=== PATIENT | male | born 1980 | race Caucasian/White ===

== ENCOUNTER 2017-08-15 14:02 | Inpatient (IN) | payer MEDICAID, OTHER ==
[~2017-08-15] VITALS: Ht 152.4 cm; Wt 61.0 kg
[2017-08-15] MEDS ORDERED: SODIUM CHLORIDE FLUSH 10ML SYR IVF ONE (14:30)
[2017-08-15] MEDS ORDERED: SODIUM CHLORIDE 0.9% 1,000ML IVBOLUS ONE (14:30)
[2017-08-15] MEDS ORDERED: MORPHINE SULFATE 4 MG/ML, 1ML IVPush PRN ×2 (14:30→20:30)
[2017-08-15] MEDS ORDERED: ONDANSETRON ODT 4 MG PO ONE (14:30)
[2017-08-15] MEDS ORDERED: ACETAMINOPHEN 325 MG TABLET PO ONE (14:30)
[2017-08-15] MEDS ORDERED: ONDANSETRON ODT 4 MG ONE (14:49)
[2017-08-15] MEDS ORDERED: ACETAMINOPHEN 325 MG TABLET ONE (14:50)
[2017-08-15] MEDS ORDERED: MORPHINE SULFATE 4 MG/ML, 1ML ONE (14:50)
[2017-08-15 14:56] LABS: BASOPHILS # (AUTO) 0.02 x10^3/uL (0-0.1); BASOPHILS % (AUTO) 0 % (0-1); EOSINOPHILS % (AUTO) 0 % (1-7); LYMPHOCYTES # (AUTO) 1.13 x10^3/uL (1-3.4); LYMPHOCYTES % (AUTO) 10 % (22-44); MD NO; MEAN CORPUSCULAR HEMOGLOBIN 30.1 pg (27.5-34.5); MEAN CORPUSCULAR HGB CONC 34.1 g/dL (33.2-36.2); MEAN CORPUSCULAR VOLUME 88.3 fL (81-97); MEAN PLATELET VOLUME 7.7 fL (7.4-10.4); MONOCYTES # (AUTO) 0.87 x10^3/uL (0.2-0.8); MONOCYTES % (AUTO) 8 % (2-9); NEUTROPHILS # (AUTO) 9.28 x10^3/uL (1.8-6.8); NEUTROPHILS % (AUTO) 82 % (42-75); PLATELET COUNT 401 x10^3/uL (130-400); RED BLOOD COUNT 5.48 x10^6/uL (4.38-5.82); RED CELL DISTRIBUTION WIDTH 12.3 % (9.4-14.8)
[2017-08-15 15:08] LABS: ALBUMIN 3.6 g/dL (3.4-5.0); ANION GAP 7 mmol/L (5-15); CALCIUM 8.8 mg/dL (8.5-10.1); CHLORIDE 101 mmol/L (98-107)
[2017-08-15 16:00] LABS: ACETONE, SERUM Small (20mg/dL) mg/dL (Negative)
[2017-08-15] MEDS ORDERED: AMPICILLIN/SULBACTAM 3 GM in SODIUM CHLORIDE 0.9% 100 ML IV ONE (17:30)
[2017-08-15] MEDS ORDERED: ONDANSETRON 2MG/ML, 2ML IVPush PRN ×2 (18:00→20:30)
[2017-08-15] MEDS: AMPICILLIN/SULBACTAM 3 GM in SODIUM CHLORIDE 0.9% 100 ML IV SCH (18:00)
[2017-08-15] MEDS ORDERED: BISACODYL 10 MG SUPP PR PRN (18:00)
[2017-08-15] MEDS ORDERED: POLYETHYLENE GLYCOL 17 GM PACKET PO PRN (18:00)
[2017-08-15] MEDS ORDERED: FENTANYL PF 250 MCG/5ML ONE (19:57)
[2017-08-15] MEDS ORDERED: MIDAZOLAM 1 MG/ML, 2ML ONE (19:57)
[2017-08-15] MEDS ORDERED: PROPOFOL 10 MG/ML, 20ML ONE (19:58)
[2017-08-15] MEDS ORDERED: ROCURONIUM 10MG/ML,5ML ONE (19:59)
[2017-08-15] MEDS ORDERED: SUCCINYLCHOLINE 20 MG/ML, 10ML ONE (20:00)
[2017-08-15] MEDS ORDERED: EPINEPHRINE 1 MG/ML, 1ML ONE (20:03)
[2017-08-15] MEDS ORDERED: LIDOCAINE/PF 1%, 30ML ONE (20:03)
[2017-08-15] MEDS ORDERED: ACETAMINOPHEN 325 MG TABLET PO PRN (20:30)
[2017-08-15] MEDS ORDERED: PROMETHAZINE 25 MG/ML, 1ML IV PRN (20:30)
[2017-08-15] MEDS ORDERED: LABETALOL 5MG/ML, 20ML IV PRN (20:30)
[2017-08-15] MEDS ORDERED: hydrALAzine 20 MG/ML, 1ML IV PRN (20:30)
[2017-08-15] MEDS ORDERED: PROMETHAZINE 12.5 MG SUPP PR PRN (20:30)
[2017-08-15] MEDS ORDERED: ONDANSETRON 0.8 MG/ML ORAL SOL PO PRN (20:30)
[2017-08-15] MEDS ORDERED: FENTANYL PF 100 MCG/2ML IV PRN (20:30)
[2017-08-15] MEDS ORDERED: PROMETHAZINE 25 MG SUPP PR PRN (20:30)
[2017-08-15] MEDS ORDERED: MEPERIDINE/PF 25MG/0.5ML IVPush PRN (20:30)
[2017-08-15] MEDS ORDERED: OXYcodone 5 MG/5 ML ORAL.SOL UDC PO PRN (20:30)
[2017-08-15] MEDS ORDERED: HYDROmorphone 1 MG/ML, 1ML IV PRN (20:30)
[2017-08-15] MEDS ORDERED: LIDOCAINE 1%-EPI 1:100K, 30ML IM ONE (20:48)
[2017-08-15 21:03] LABS: HEMOGLOBIN A1C 12.3 % (4.2-6.3)
[2017-08-15] MEDS ORDERED: MEPERIDINE/PF 25MG/0.5ML ONE (21:09)
[2017-08-15] MEDS ORDERED: OXYcodone 5 MG/5 ML ORAL.SOL UDC ONE (21:09)
[2017-08-15] MEDS ORDERED: ACETAMINOPHEN 650 MG/20.3 ML UDC ONE (21:12)
[2017-08-15] MEDS: NS + 20MEQ KCL 1,000 ML IV SCH (23:02)
[2017-08-16] MEDS ORDERED: MORPHINE SULFATE 4 MG/ML, 1ML ONE (00:05)
[2017-08-16] MEDS: morphine SULFATE 10 MG/ML, 1ML IVPush PRN (00:14)
[2017-08-16] MEDS: AMPICILLIN/SULBACTAM 3 GM in SODIUM CHLORIDE 0.9% 100 ML IV SCH ×5 (00:54→19:34)
[2017-08-16 02:00] VITALS: BP 111/71
[2017-08-16] MEDS: OXYcodone IR 5MG TABLET PO PRN ×3 (04:52→17:03)
[2017-08-16 05:38] LABS: BASOPHILS # (AUTO) 0.03 x10^3/uL (0-0.1); BASOPHILS % (AUTO) 0 % (0-1); EOSINOPHILS # (AUTO) 0.01 x10^3/uL (0-0.4); EOSINOPHILS % (AUTO) 0 % (1-7); LYMPHOCYTES # (AUTO) 1.64 x10^3/uL (1-3.4); LYMPHOCYTES % (AUTO) 12 % (22-44); MD NO; MEAN CORPUSCULAR HEMOGLOBIN 30.7 pg (27.5-34.5); MEAN CORPUSCULAR HGB CONC 34.2 g/dL (33.2-36.2); MEAN CORPUSCULAR VOLUME 89.8 fL (81-97); MEAN PLATELET VOLUME 7.5 fL (7.4-10.4); MONOCYTES # (AUTO) 1.24 x10^3/uL (0.2-0.8); MONOCYTES % (AUTO) 9 % (2-9); NEUTROPHILS # (AUTO) 10.88 x10^3/uL (1.8-6.8); NEUTROPHILS % (AUTO) 79 % (42-75); PLATELET COUNT 374 x10^3/uL (130-400); RED BLOOD COUNT 4.45 x10^6/uL (4.38-5.82); RED CELL DISTRIBUTION WIDTH 12.4 % (9.4-14.8)
[2017-08-16 05:46] LABS: ALANINE AMINOTRANSFERASE 18 U/L (12-78); ALBUMIN 2.6 g/dL (3.4-5.0); ANION GAP 9 mmol/L (5-15); CALCIUM 8.4 mg/dL (8.5-10.1); CHLORIDE 102 mmol/L (98-107)
[2017-08-16 05:48] LABS: ALKALINE PHOSPHATASE 79 U/L (45-117); BILIRUBIN,TOTAL 0.8 mg/dL (0.2-1.0); CREATININE 0.64 mg/dL (0.7-1.3); TOTAL PROTEIN 6.9 g/dL (6.4-8.2)
[2017-08-16 06:51] VITALS: BP 111/69
[2017-08-16] MEDS: NS + 20MEQ KCL 1,000 ML IV SCH ×3 (07:28→23:00)
[2017-08-16] MEDS: SENNA/DOCUSATE TABLET PO SCH (09:10)
[2017-08-16] MEDS: CHLORHEXIDINE 15 ML BOTTLE MM SCH ×2 (09:10→23:10)
[2017-08-16] MEDS: metFORMIN 500 MG TABLET PO SCH ×2 (09:10→17:03)
[2017-08-16 15:47] VITALS: BP 120/78
[2017-08-16] MEDS: ACETAMINOPHEN 325 MG TABLET PO PRN (15:50)
[2017-08-16] MEDS: INSULIN LISPRO 100 UNITS/ML, PEN SQ-INSULIN SCH ×2 (18:04→22:47)
[2017-08-16 19:02] VITALS: BP 114/73
[2017-08-16] MEDS: INSULIN GLARGINE 100 UNITS/ML, PEN SQ-INSULIN SCH (22:48)
[2017-08-17] MEDS: NS + 20MEQ KCL 1,000 ML IV SCH ×3 (00:22→16:17)
[2017-08-17] MEDS: OXYcodone IR 5MG TABLET PO PRN ×4 (01:33→17:38)
[2017-08-17] MEDS: AMPICILLIN/SULBACTAM 3 GM in SODIUM CHLORIDE 0.9% 100 ML IV SCH ×4 (01:33→19:35)
[2017-08-17 02:00] VITALS: BP 116/72
[2017-08-17] MEDS: ACETAMINOPHEN 325 MG TABLET PO PRN (03:27)
[2017-08-17 05:31] LABS: MEAN CORPUSCULAR HEMOGLOBIN 30.2 pg (27.5-34.5); MEAN CORPUSCULAR HGB CONC 33.9 g/dL (33.2-36.2); MEAN CORPUSCULAR VOLUME 89.2 fL (81-97); MEAN PLATELET VOLUME 7.2 fL (7.4-10.4); PLATELET COUNT 371 x10^3/uL (130-400); RED BLOOD COUNT 4.08 x10^6/uL (4.38-5.82); RED CELL DISTRIBUTION WIDTH 12.3 % (9.4-14.8)
[2017-08-17 05:44] LABS: ANION GAP 7 mmol/L (5-15); CALCIUM 7.8 mg/dL (8.5-10.1); CHLORIDE 102 mmol/L (98-107)
[2017-08-17 05:45] LABS: CREATININE 0.62 mg/dL (0.7-1.3)
[2017-08-17 06:10] LABS: BASOPHILS # (AUTO) 0.03 x10^3/uL (0-0.1); BASOPHILS % (AUTO) 0 % (0-1); EOSINOPHILS # (AUTO) 0.02 x10^3/uL (0-0.4); EOSINOPHILS % (AUTO) 0 % (1-7); LYMPHOCYTES # (AUTO) 2.38 x10^3/uL (1-3.4); LYMPHOCYTES % (AUTO) 21 % (22-44); MD SCAN; MONOCYTES # (AUTO) 1.48 x10^3/uL (0.2-0.8); MONOCYTES % (AUTO) 13 % (2-9); NEUTROPHILS # (AUTO) 7.67 x10^3/uL (1.8-6.8); NEUTROPHILS % (AUTO) 66 % (42-75)
[2017-08-17] MEDS: INSULIN LISPRO 100 UNITS/ML, PEN SQ-INSULIN SCH ×4 (07:15→21:51)
[2017-08-17 07:32] VITALS: BP 102/51
[2017-08-17] MEDS: metFORMIN 500 MG TABLET PO SCH ×2 (09:20→16:16)
[2017-08-17] MEDS: SENNA/DOCUSATE TABLET PO SCH (09:20)
[2017-08-17] MEDS: CHLORHEXIDINE 15 ML BOTTLE MM SCH ×2 (09:22→21:49)
[2017-08-17] MEDS ORDERED: VANCOMYCIN PER PHARMACY MC PRN (12:30)
[2017-08-17] MEDS ORDERED: PHARMACOKINETIC CONSULTATION MC ONE (13:00)
[2017-08-17] MEDS ORDERED: PHARMACOKINETIC MONITORING MC PRN (13:00)
[2017-08-17 13:16] VITALS: BP 110/73
[2017-08-17] MEDS: VANCOMYCIN 1,200 MG in SODIUM CHLORIDE 0.9% 250 ML IV SCH (13:52)
[2017-08-17] MEDS: ENOXAPARIN 40 MG/0.4 ML SQ SCH (16:16)
[2017-08-17 19:07] VITALS: BP 124/83
[2017-08-17] MEDS ORDERED: MORPHINE SULFATE 4 MG/ML, 1ML ONE (21:36)
[2017-08-17] MEDS: morphine SULFATE 10 MG/ML, 1ML IVPush PRN (21:48)
[2017-08-17] MEDS: INSULIN GLARGINE 100 UNITS/ML, PEN SQ-INSULIN SCH (21:52)
[2017-08-18] MEDS: AMPICILLIN/SULBACTAM 3 GM in SODIUM CHLORIDE 0.9% 100 ML IV SCH ×4 (01:08→21:00)
[2017-08-18] MEDS: NS + 20MEQ KCL 1,000 ML IV SCH (01:12)
[2017-08-18 01:21] VITALS: BP 109/67
[2017-08-18] MEDS: VANCOMYCIN 1,200 MG in SODIUM CHLORIDE 0.9% 250 ML IV SCH ×2 (01:55→12:52)
[2017-08-18] MEDS ORDERED: MORPHINE SULFATE 4 MG/ML, 1ML ONE (02:01)
[2017-08-18] MEDS: morphine SULFATE 10 MG/ML, 1ML IVPush PRN (02:06)
[2017-08-18 05:19] LABS: BASOPHILS # (AUTO) 0.03 x10^3/uL (0-0.1); BASOPHILS % (AUTO) 0 % (0-1); EOSINOPHILS # (AUTO) 0.07 x10^3/uL (0-0.4); EOSINOPHILS % (AUTO) 1 % (1-7); LYMPHOCYTES # (AUTO) 2.06 x10^3/uL (1-3.4); LYMPHOCYTES % (AUTO) 23 % (22-44); MD NO; MEAN CORPUSCULAR HEMOGLOBIN 30.5 pg (27.5-34.5); MEAN CORPUSCULAR HGB CONC 34.5 g/dL (33.2-36.2); MEAN CORPUSCULAR VOLUME 88.5 fL (81-97); MEAN PLATELET VOLUME 6.9 fL (7.4-10.4); MONOCYTES # (AUTO) 1.17 x10^3/uL (0.2-0.8); MONOCYTES % (AUTO) 13 % (2-9); NEUTROPHILS # (AUTO) 5.47 x10^3/uL (1.8-6.8); NEUTROPHILS % (AUTO) 62 % (42-75); PLATELET COUNT 398 x10^3/uL (130-400); RED BLOOD COUNT 3.92 x10^6/uL (4.38-5.82); RED CELL DISTRIBUTION WIDTH 12.5 % (9.4-14.8)
[2017-08-18 05:28] LABS: ANION GAP 8 mmol/L (5-15); CALCIUM 8.5 mg/dL (8.5-10.1); CHLORIDE 99 mmol/L (98-107); CREATININE 0.52 mg/dL (0.7-1.3)
[2017-08-18] MEDS: ACETAMINOPHEN 325 MG TABLET PO PRN (06:38)
[2017-08-18] MEDS: OXYcodone IR 5MG TABLET PO PRN ×5 (06:38→23:36)
[2017-08-18] MEDS: CHLORHEXIDINE 15 ML BOTTLE MM SCH ×2 (07:42→21:02)
[2017-08-18] MEDS: SENNA/DOCUSATE TABLET PO SCH (07:42)
[2017-08-18] MEDS: INSULIN LISPRO 100 UNITS/ML, PEN SQ-INSULIN SCH ×4 (07:42→21:02)
[2017-08-18] MEDS: metFORMIN 500 MG TABLET PO SCH ×2 (07:42→15:43)
[2017-08-18 07:54] VITALS: BP 116/77
[2017-08-18 14:55] VITALS: BP 114/73
[2017-08-18] MEDS: ENOXAPARIN 40 MG/0.4 ML SQ SCH (15:43)
[2017-08-18] MEDS ORDERED: OMNIPAQUE 350 MG/ML, 100ML BOTTLE ONE (18:00)
[2017-08-18 18:23] VITALS: BP 135/89
[2017-08-18] MEDS: INSULIN GLARGINE 100 UNITS/ML, PEN SQ-INSULIN SCH (21:02)
[2017-08-19 00:58] VITALS: BP 120/75
[2017-08-19] MEDS: VANCOMYCIN 1,200 MG in SODIUM CHLORIDE 0.9% 250 ML IV SCH ×2 (01:15→12:37)
[2017-08-19] MEDS: AMPICILLIN/SULBACTAM 3 GM in SODIUM CHLORIDE 0.9% 100 ML IV SCH ×3 (02:59→14:25)
[2017-08-19] MEDS: OXYcodone IR 5MG TABLET PO PRN ×5 (03:20→21:00)
[2017-08-19 05:30] LABS: BASOPHILS # (AUTO) 0.02 x10^3/uL (0-0.1); BASOPHILS % (AUTO) 0 % (0-1); EOSINOPHILS # (AUTO) 0.14 x10^3/uL (0-0.4); EOSINOPHILS % (AUTO) 2 % (1-7); LYMPHOCYTES # (AUTO) 2.34 x10^3/uL (1-3.4); LYMPHOCYTES % (AUTO) 31 % (22-44); MD NO; MEAN CORPUSCULAR HEMOGLOBIN 30.3 pg (27.5-34.5); MEAN CORPUSCULAR HGB CONC 34.1 g/dL (33.2-36.2); MEAN CORPUSCULAR VOLUME 88.9 fL (81-97); MEAN PLATELET VOLUME 7.1 fL (7.4-10.4); MONOCYTES # (AUTO) 0.69 x10^3/uL (0.2-0.8); MONOCYTES % (AUTO) 9 % (2-9); NEUTROPHILS # (AUTO) 4.36 x10^3/uL (1.8-6.8); NEUTROPHILS % (AUTO) 58 % (42-75); PLATELET COUNT 501 x10^3/uL (130-400); RED BLOOD COUNT 4.34 x10^6/uL (4.38-5.82); RED CELL DISTRIBUTION WIDTH 12.4 % (9.4-14.8)
[2017-08-19 05:31] LABS: CHLORIDE 101 mmol/L (98-107)
[2017-08-19 05:37] LABS: ANION GAP 6 mmol/L (5-15); CALCIUM 8.5 mg/dL (8.5-10.1); CREATININE 0.52 mg/dL (0.7-1.3)
[2017-08-19] MEDS: INSULIN LISPRO 100 UNITS/ML, PEN SQ-INSULIN SCH ×4 (06:09→20:59)
[2017-08-19 06:57] VITALS: BP 124/80
[2017-08-19] MEDS: metFORMIN 500 MG TABLET PO SCH ×2 (08:07→16:41)
[2017-08-19] MEDS: SENNA/DOCUSATE TABLET PO SCH (09:00)
[2017-08-19] MEDS: CHLORHEXIDINE 15 ML BOTTLE MM SCH ×2 (11:05→20:51)
[2017-08-19] MEDS ORDERED: AMOX1TAB64 PO (14:33)
[2017-08-19] MEDS ORDERED: OXYC5TAB3 PO (14:33)
[2017-08-19] MEDS ORDERED: CHLO473M MM (14:33)
[2017-08-19] MEDS ORDERED: POLY17PO5 PO (14:33)
[2017-08-19] MEDS ORDERED: METF500T PO (14:33)
[2017-08-19] MEDS ORDERED: INSU100I13 SQ-INSULIN (14:33)
[2017-08-19 15:13] VITALS: BP 119/82
[2017-08-19] MEDS: ENOXAPARIN 40 MG/0.4 ML SQ SCH (15:17)
[2017-08-19 19:13] VITALS: BP 128/89
[2017-08-19] MEDS: INSULIN GLARGINE 100 UNITS/ML, PEN SQ-INSULIN SCH (21:00)
[2017-08-19] MEDS: AMOXICILLIN/CLAV 875-125MG TABLET PO SCH (21:00)
[2017-08-20 02:11] VITALS: BP 115/72
[2017-08-20] MEDS: INSULIN LISPRO 100 UNITS/ML, PEN SQ-INSULIN SCH ×4 (06:32→21:00)
[2017-08-20] MEDS: OXYcodone IR 5MG TABLET PO PRN (06:32)
[2017-08-20] MEDS: AMOXICILLIN/CLAV 875-125MG TABLET PO SCH (08:58)
[2017-08-20] MEDS: metFORMIN 500 MG TABLET PO SCH ×2 (08:58→16:32)
[2017-08-20] MEDS: SENNA/DOCUSATE TABLET PO SCH (08:58)
[2017-08-20] MEDS: CHLORHEXIDINE 15 ML BOTTLE MM SCH ×2 (09:00→21:25)
[2017-08-20] MEDS ORDERED: AMOX1TAB64 PO (11:30)
[2017-08-20] MEDS ORDERED: OMNIPAQUE 350 MG/ML, 75ML BOTTLE ONE (13:43)
[2017-08-20] MEDS: ENOXAPARIN 40 MG/0.4 ML SQ SCH (16:33)
[2017-08-20 17:04] VITALS: BP 121/74
[2017-08-20 18:53] VITALS: BP 121/82
[2017-08-20] MEDS: PIPERACILLIN/TAZO/PMX 3.375GM 50 ML IV SCH (19:40)
[2017-08-20] MEDS: INSULIN GLARGINE 100 UNITS/ML, PEN SQ-INSULIN SCH (21:26)
[2017-08-21] MEDS ORDERED: MORPHINE SULFATE 4 MG/ML, 1ML ONE (00:26)
[2017-08-21] MEDS: PIPERACILLIN/TAZO/PMX 3.375GM 50 ML IV SCH ×3 (00:31→12:37)
[2017-08-21] MEDS: morphine SULFATE 10 MG/ML, 1ML IVPush PRN (00:31)
[2017-08-21 02:57] VITALS: BP 115/72
[2017-08-21 05:21] LABS: BASOPHILS # (AUTO) 0.03 x10^3/uL (0-0.1); BASOPHILS % (AUTO) 0 % (0-1); EOSINOPHILS # (AUTO) 0.15 x10^3/uL (0-0.4); EOSINOPHILS % (AUTO) 2 % (1-7); LYMPHOCYTES % (AUTO) 36 % (22-44); MD NO; MEAN CORPUSCULAR HEMOGLOBIN 30.5 pg (27.5-34.5); MEAN CORPUSCULAR HGB CONC 34.5 g/dL (33.2-36.2); MEAN CORPUSCULAR VOLUME 88.3 fL (81-97); MEAN PLATELET VOLUME 6.7 fL (7.4-10.4); MONOCYTES # (AUTO) 0.73 x10^3/uL (0.2-0.8); MONOCYTES % (AUTO) 10 % (2-9); NEUTROPHILS # (AUTO) 3.81 x10^3/uL (1.8-6.8); NEUTROPHILS % (AUTO) 52 % (42-75); PLATELET COUNT 608 x10^3/uL (130-400); RED BLOOD COUNT 4.59 x10^6/uL (4.38-5.82); RED CELL DISTRIBUTION WIDTH 12.5 % (9.4-14.8)
[2017-08-21 05:22] LABS: ALANINE AMINOTRANSFERASE 222 U/L (12-78); ALBUMIN 2.5 g/dL (3.4-5.0); ANION GAP 7 mmol/L (5-15); CALCIUM 9.6 mg/dL (8.5-10.1); CHLORIDE 103 mmol/L (98-107); CREATININE 0.67 mg/dL (0.7-1.3)
[2017-08-21 05:24] LABS: ALKALINE PHOSPHATASE 173 U/L (45-117); BILIRUBIN,TOTAL 0.4 mg/dL (0.2-1.0); TOTAL PROTEIN 7.8 g/dL (6.4-8.2)
[2017-08-21] MEDS: INSULIN LISPRO 100 UNITS/ML, PEN SQ-INSULIN SCH ×4 (07:00→21:45)
[2017-08-21] MEDS: SENNA/DOCUSATE TABLET PO SCH (07:48)
[2017-08-21] MEDS: CHLORHEXIDINE 15 ML BOTTLE MM SCH ×2 (07:48→21:46)
[2017-08-21] MEDS: metFORMIN 500 MG TABLET PO SCH (07:48)
[2017-08-21 07:55] VITALS: BP 107/75
[2017-08-21] MEDS: INSULIN GLARGINE 100 UNITS/ML, PEN SQ-INSULIN SCH (09:55)
[2017-08-21 12:47] VITALS: BP 107/73
[2017-08-21 15:33] LABS: HCT (SEDRATE) 41.3 % (39.2-51.8)
[2017-08-21] MEDS: AMPICILLIN/SULBACTAM 3 GM in SODIUM CHLORIDE 0.9% 100 ML IV SCH ×2 (15:39→21:25)
[2017-08-21] MEDS: ENOXAPARIN 40 MG/0.4 ML SQ SCH (15:39)
[2017-08-21 18:30] VITALS: BP 111/72
[2017-08-22 00:40] VITALS: BP 126/81
[2017-08-22] MEDS: AMPICILLIN/SULBACTAM 3 GM in SODIUM CHLORIDE 0.9% 100 ML IV SCH ×4 (03:38→21:38)
[2017-08-22 05:01] LABS: BASOPHILS # (AUTO) 0.03 x10^3/uL (0-0.1); BASOPHILS % (AUTO) 0 % (0-1); EOSINOPHILS # (AUTO) 0.19 x10^3/uL (0-0.4); EOSINOPHILS % (AUTO) 2 % (1-7); LYMPHOCYTES % (AUTO) 35 % (22-44); MD NO; MEAN CORPUSCULAR HEMOGLOBIN 30.5 pg (27.5-34.5); MEAN CORPUSCULAR HGB CONC 34.4 g/dL (33.2-36.2); MEAN CORPUSCULAR VOLUME 88.7 fL (81-97); MEAN PLATELET VOLUME 6.7 fL (7.4-10.4); MONOCYTES # (AUTO) 0.73 x10^3/uL (0.2-0.8); MONOCYTES % (AUTO) 9 % (2-9); NEUTROPHILS # (AUTO) 4.26 x10^3/uL (1.8-6.8); NEUTROPHILS % (AUTO) 53 % (42-75); PLATELET COUNT 594 x10^3/uL (130-400); RED BLOOD COUNT 4.38 x10^6/uL (4.38-5.82); RED CELL DISTRIBUTION WIDTH 12.8 % (9.4-14.8)
[2017-08-22 05:12] LABS: ALANINE AMINOTRANSFERASE 232 U/L (12-78); ALBUMIN 2.4 g/dL (3.4-5.0); ANION GAP 6 mmol/L (5-15); CALCIUM 8.4 mg/dL (8.5-10.1); CHLORIDE 105 mmol/L (98-107)
[2017-08-22 05:15] LABS: ALKALINE PHOSPHATASE 156 U/L (45-117); BILIRUBIN,TOTAL 0.4 mg/dL (0.2-1.0); CREATININE 0.58 mg/dL (0.7-1.3); TOTAL PROTEIN 7.5 g/dL (6.4-8.2)
[2017-08-22] MEDS: INSULIN LISPRO 100 UNITS/ML, PEN SQ-INSULIN SCH ×4 (07:00→21:36)
[2017-08-22 07:09] VITALS: BP 130/81
[2017-08-22] MEDS: SENNA/DOCUSATE TABLET PO SCH (08:22)
[2017-08-22] MEDS: CHLORHEXIDINE 15 ML BOTTLE MM SCH ×2 (08:24→21:04)
[2017-08-22] MEDS: INSULIN GLARGINE 100 UNITS/ML, PEN SQ-INSULIN SCH ×3 (08:24→21:35)
[2017-08-22 12:36] VITALS: BP 110/65
[2017-08-22] MEDS: ENOXAPARIN 40 MG/0.4 ML SQ SCH (15:33)
[2017-08-22 20:14] VITALS: BP 120/72
[2017-08-23 02:18] VITALS: BP 113/71
[2017-08-23] MEDS: AMPICILLIN/SULBACTAM 3 GM in SODIUM CHLORIDE 0.9% 100 ML IV SCH ×4 (03:40→22:06)
[2017-08-23 05:47] LABS: BASOPHILS # (AUTO) 0.04 x10^3/uL (0-0.1); BASOPHILS % (AUTO) 1 % (0-1); EOSINOPHILS # (AUTO) 0.11 x10^3/uL (0-0.4); EOSINOPHILS % (AUTO) 2 % (1-7); LYMPHOCYTES # (AUTO) 2.88 x10^3/uL (1-3.4); LYMPHOCYTES % (AUTO) 41 % (22-44); MD NO; MEAN CORPUSCULAR HEMOGLOBIN 30.2 pg (27.5-34.5); MEAN CORPUSCULAR HGB CONC 34.2 g/dL (33.2-36.2); MEAN CORPUSCULAR VOLUME 88.3 fL (81-97); MEAN PLATELET VOLUME 6.7 fL (7.4-10.4); MONOCYTES % (AUTO) 7 % (2-9); NEUTROPHILS # (AUTO) 3.48 x10^3/uL (1.8-6.8); NEUTROPHILS % (AUTO) 50 % (42-75); PLATELET COUNT 643 x10^3/uL (130-400); RED BLOOD COUNT 4.45 x10^6/uL (4.38-5.82); RED CELL DISTRIBUTION WIDTH 12.6 % (9.4-14.8)
[2017-08-23 06:00] LABS: ALBUMIN 2.6 g/dL (3.4-5.0); ANION GAP 9 mmol/L (5-15); CALCIUM 9.1 mg/dL (8.5-10.1); CHLORIDE 107 mmol/L (98-107)
[2017-08-23 06:05] LABS: ALANINE AMINOTRANSFERASE 214 U/L (12-78); ALKALINE PHOSPHATASE 136 U/L (45-117); BILIRUBIN,TOTAL 0.4 mg/dL (0.2-1.0); CREATININE 0.53 mg/dL (0.7-1.3); TOTAL PROTEIN 7.7 g/dL (6.4-8.2)
[2017-08-23] MEDS: INSULIN LISPRO 100 UNITS/ML, PEN SQ-INSULIN SCH ×4 (07:10→21:07)
[2017-08-23 08:22] VITALS: BP 102/68
[2017-08-23] MEDS: SENNA/DOCUSATE TABLET PO SCH (09:45)
[2017-08-23] MEDS: CHLORHEXIDINE 15 ML BOTTLE MM SCH ×2 (09:45→21:01)
[2017-08-23] MEDS: INSULIN GLARGINE 100 UNITS/ML, PEN SQ-INSULIN SCH ×2 (09:46→21:08)
[2017-08-23 13:22] VITALS: BP 115/76
[2017-08-23] MEDS: ENOXAPARIN 40 MG/0.4 ML SQ SCH (16:21)
[2017-08-23 18:37] VITALS: BP 101/64
[2017-08-24 01:54] VITALS: BP 101/57
[2017-08-24] MEDS: AMPICILLIN/SULBACTAM 3 GM in SODIUM CHLORIDE 0.9% 100 ML IV SCH ×4 (03:39→21:19)
[2017-08-24 05:31] LABS: CHLORIDE 106 mmol/L (98-107)
[2017-08-24 05:39] LABS: ALANINE AMINOTRANSFERASE 179 U/L (12-78); ALBUMIN 2.6 g/dL (3.4-5.0); ALKALINE PHOSPHATASE 126 U/L (45-117); ANION GAP 7 mmol/L (5-15); BILIRUBIN,TOTAL 0.5 mg/dL (0.2-1.0); CALCIUM 8.3 mg/dL (8.5-10.1); CREATININE 0.67 mg/dL (0.7-1.3); TOTAL PROTEIN 7.3 g/dL (6.4-8.2)
[2017-08-24] MEDS: INSULIN LISPRO 100 UNITS/ML, PEN SQ-INSULIN SCH ×4 (06:15→21:00)
[2017-08-24 08:17] VITALS: BP 115/80
[2017-08-24] MEDS: SENNA/DOCUSATE TABLET PO SCH (08:51)
[2017-08-24] MEDS: CHLORHEXIDINE 15 ML BOTTLE MM SCH ×2 (08:52→21:12)
[2017-08-24] MEDS: INSULIN GLARGINE 100 UNITS/ML, PEN SQ-INSULIN SCH ×2 (08:53→21:19)
[2017-08-24 14:27] VITALS: BP 121/77
[2017-08-24] MEDS: ENOXAPARIN 40 MG/0.4 ML SQ SCH (15:39)
[2017-08-24 19:27] VITALS: BP 106/72
[2017-08-25 02:33] VITALS: BP 110/64
[2017-08-25] MEDS: AMPICILLIN/SULBACTAM 3 GM in SODIUM CHLORIDE 0.9% 100 ML IV SCH ×4 (03:20→21:30)
[2017-08-25] MEDS: INSULIN LISPRO 100 UNITS/ML, PEN SQ-INSULIN SCH ×4 (06:18→21:37)
[2017-08-25] MEDS: SENNA/DOCUSATE TABLET PO SCH (08:06)
[2017-08-25] MEDS: CHLORHEXIDINE 15 ML BOTTLE MM SCH ×2 (08:06→21:29)
[2017-08-25] MEDS: INSULIN GLARGINE 100 UNITS/ML, PEN SQ-INSULIN SCH ×2 (08:07→21:37)
[2017-08-25 08:35] VITALS: BP 109/70
[2017-08-25] MEDS: SODIUM CHLORIDE 0.9% 1,000 ML IV SCH ×3 (09:55→21:38)
[2017-08-25] MEDS ORDERED: OMNIPAQUE 350 MG/ML, 75ML BOTTLE ONE (11:59)
[2017-08-25 15:02] VITALS: BP 119/73
[2017-08-25] MEDS: ENOXAPARIN 40 MG/0.4 ML SQ SCH (15:36)
[2017-08-25 19:32] VITALS: BP 129/60
[2017-08-26] MEDS: SODIUM CHLORIDE 0.9% 1,000 ML IV SCH ×4 (01:57→23:12)
[2017-08-26 02:27] VITALS: BP 120/62
[2017-08-26] MEDS: AMPICILLIN/SULBACTAM 3 GM in SODIUM CHLORIDE 0.9% 100 ML IV SCH ×4 (03:19→21:12)
[2017-08-26 05:21] LABS: BASOPHILS # (AUTO) 0.04 x10^3/uL (0-0.1); BASOPHILS % (AUTO) 1 % (0-1); EOSINOPHILS % (AUTO) 1 % (1-7); LYMPHOCYTES # (AUTO) 3.51 x10^3/uL (1-3.4); LYMPHOCYTES % (AUTO) 49 % (22-44); MD NO; MEAN CORPUSCULAR HGB CONC 33.6 g/dL (33.2-36.2); MEAN CORPUSCULAR VOLUME 89.2 fL (81-97); MEAN PLATELET VOLUME 6.9 fL (7.4-10.4); MONOCYTES % (AUTO) 7 % (2-9); NEUTROPHILS # (AUTO) 2.96 x10^3/uL (1.8-6.8); NEUTROPHILS % (AUTO) 42 % (42-75); PLATELET COUNT 637 x10^3/uL (130-400); RED BLOOD COUNT 4.41 x10^6/uL (4.38-5.82); RED CELL DISTRIBUTION WIDTH 12.5 % (9.4-14.8)
[2017-08-26 05:25] LABS: ALANINE AMINOTRANSFERASE 126 U/L (12-78); ALBUMIN 2.9 g/dL (3.4-5.0); ANION GAP 6 mmol/L (5-15); CALCIUM 8.9 mg/dL (8.5-10.1); CHLORIDE 106 mmol/L (98-107); CREATININE 0.65 mg/dL (0.7-1.3)
[2017-08-26 05:27] LABS: ALKALINE PHOSPHATASE 95 U/L (45-117); BILIRUBIN,TOTAL 0.3 mg/dL (0.2-1.0); TOTAL PROTEIN 7.2 g/dL (6.4-8.2)
[2017-08-26] MEDS: INSULIN LISPRO 100 UNITS/ML, PEN SQ-INSULIN SCH ×4 (06:13→21:00)
[2017-08-26 07:25] VITALS: BP 112/68
[2017-08-26] MEDS: SENNA/DOCUSATE TABLET PO SCH (09:02)
[2017-08-26] MEDS: CHLORHEXIDINE 15 ML BOTTLE MM SCH ×2 (09:02→21:12)
[2017-08-26] MEDS: INSULIN GLARGINE 100 UNITS/ML, PEN SQ-INSULIN SCH ×2 (09:02→21:13)
[2017-08-26 13:42] VITALS: BP 104/62
[2017-08-26] MEDS: ENOXAPARIN 40 MG/0.4 ML SQ SCH (15:31)
[2017-08-26 19:20] VITALS: BP 129/86
[2017-08-27 00:42] VITALS: BP 131/84
[2017-08-27] MEDS: AMPICILLIN/SULBACTAM 3 GM in SODIUM CHLORIDE 0.9% 100 ML IV SCH ×4 (03:17→21:50)
[2017-08-27] MEDS: INSULIN LISPRO 100 UNITS/ML, PEN SQ-INSULIN SCH ×4 (06:48→20:49)
[2017-08-27 07:51] VITALS: BP 132/82
[2017-08-27] MEDS: SODIUM CHLORIDE 0.9% 1,000 ML IV SCH ×3 (08:10→21:30)
[2017-08-27] MEDS: SENNA/DOCUSATE TABLET PO SCH (09:17)
[2017-08-27] MEDS: CHLORHEXIDINE 15 ML BOTTLE MM SCH ×2 (09:17→20:48)
[2017-08-27] MEDS: INSULIN GLARGINE 100 UNITS/ML, PEN SQ-INSULIN SCH ×2 (09:19→21:50)
[2017-08-27 13:50] VITALS: BP 135/95
[2017-08-27] MEDS: ENOXAPARIN 40 MG/0.4 ML SQ SCH (15:47)
[2017-08-27 21:06] VITALS: BP 131/84
[2017-08-28 03:06] VITALS: BP 111/75
[2017-08-28] MEDS: AMPICILLIN/SULBACTAM 3 GM in SODIUM CHLORIDE 0.9% 100 ML IV SCH ×4 (03:47→21:26)
[2017-08-28] MEDS: SODIUM CHLORIDE 0.9% 1,000 ML IV SCH ×2 (04:10→08:15)
[2017-08-28 05:36] LABS: CHLORIDE 104 mmol/L (98-107)
[2017-08-28 05:47] LABS: ALANINE AMINOTRANSFERASE 90 U/L (12-78); ALBUMIN 3.1 g/dL (3.4-5.0); ALKALINE PHOSPHATASE 91 U/L (45-117); ANION GAP 8 mmol/L (5-15); BILIRUBIN,TOTAL 0.3 mg/dL (0.2-1.0); C-REACTIVE PROTEIN, QUANT 0.29 mg/dL (0.02-0.49); CALCIUM 9.3 mg/dL (8.5-10.1); CREATININE 0.74 mg/dL (0.7-1.3); TOTAL PROTEIN 7.5 g/dL (6.4-8.2)
[2017-08-28 05:58] LABS: BASOPHILS # (AUTO) 0.04 x10^3/uL (0-0.1); BASOPHILS % (AUTO) 1 % (0-1); EOSINOPHILS # (AUTO) 0.13 x10^3/uL (0-0.4); EOSINOPHILS % (AUTO) 2 % (1-7); LYMPHOCYTES # (AUTO) 3.46 x10^3/uL (1-3.4); LYMPHOCYTES % (AUTO) 47 % (22-44); MD NO; MEAN CORPUSCULAR HEMOGLOBIN 30.6 pg (27.5-34.5); MEAN CORPUSCULAR HGB CONC 34.1 g/dL (33.2-36.2); MEAN CORPUSCULAR VOLUME 89.8 fL (81-97); MEAN PLATELET VOLUME 7.2 fL (7.4-10.4); MONOCYTES # (AUTO) 0.59 x10^3/uL (0.2-0.8); MONOCYTES % (AUTO) 8 % (2-9); NEUTROPHILS # (AUTO) 3.08 x10^3/uL (1.8-6.8); NEUTROPHILS % (AUTO) 42 % (42-75); PLATELET COUNT 606 x10^3/uL (130-400); RED BLOOD COUNT 4.64 x10^6/uL (4.38-5.82); RED CELL DISTRIBUTION WIDTH 13.4 % (9.4-14.8)
[2017-08-28 06:15] VITALS: BP 107/67
[2017-08-28 06:41] LABS: HCT (SEDRATE) 41.7 % (39.2-51.8)
[2017-08-28] MEDS: INSULIN LISPRO 100 UNITS/ML, PEN SQ-INSULIN SCH ×4 (07:00→21:26)
[2017-08-28] MEDS: CHLORHEXIDINE 15 ML BOTTLE MM SCH ×2 (08:14→21:11)
[2017-08-28] MEDS: SENNA/DOCUSATE TABLET PO SCH (08:14)
[2017-08-28] MEDS: INSULIN GLARGINE 100 UNITS/ML, PEN SQ-INSULIN SCH ×2 (08:14→21:27)
[2017-08-28 12:25] VITALS: BP 111/68
[2017-08-28] MEDS: ENOXAPARIN 40 MG/0.4 ML SQ SCH (16:58)
[2017-08-28 19:22] VITALS: BP 111/72
[2017-08-29 02:21] VITALS: BP 112/70
[2017-08-29] MEDS: AMPICILLIN/SULBACTAM 3 GM in SODIUM CHLORIDE 0.9% 100 ML IV SCH ×4 (03:42→21:25)
[2017-08-29] MEDS: INSULIN LISPRO 100 UNITS/ML, PEN SQ-INSULIN SCH ×4 (07:00→21:00)
[2017-08-29 07:52] VITALS: BP 101/70
[2017-08-29] MEDS: INSULIN GLARGINE 100 UNITS/ML, PEN SQ-INSULIN SCH ×2 (08:59→22:24)
[2017-08-29] MEDS: CHLORHEXIDINE 15 ML BOTTLE MM SCH ×2 (09:00→21:25)
[2017-08-29] MEDS: SENNA/DOCUSATE TABLET PO SCH (09:00)
[2017-08-29 12:59] VITALS: BP 113/71
[2017-08-29] MEDS: ENOXAPARIN 40 MG/0.4 ML SQ SCH (16:01)
[2017-08-29 19:30] VITALS: BP 123/78
[2017-08-30 02:55] VITALS: BP 119/70
[2017-08-30] MEDS: AMPICILLIN/SULBACTAM 3 GM in SODIUM CHLORIDE 0.9% 100 ML IV SCH ×4 (03:44→21:27)
[2017-08-30 05:33] LABS: ALBUMIN 3.1 g/dL (3.4-5.0); ANION GAP 6 mmol/L (5-15); CALCIUM 8.4 mg/dL (8.5-10.1); CHLORIDE 105 mmol/L (98-107)
[2017-08-30 05:37] LABS: ALANINE AMINOTRANSFERASE 72 U/L (12-78); ALKALINE PHOSPHATASE 87 U/L (45-117); BILIRUBIN,TOTAL 0.4 mg/dL (0.2-1.0); CREATININE 0.74 mg/dL (0.7-1.3); TOTAL PROTEIN 7.3 g/dL (6.4-8.2)
[2017-08-30] MEDS: INSULIN LISPRO 100 UNITS/ML, PEN SQ-INSULIN SCH ×4 (07:00→21:00)
[2017-08-30 08:05] VITALS: BP 110/73
[2017-08-30] MEDS: CHLORHEXIDINE 15 ML BOTTLE MM SCH ×2 (09:17→21:27)
[2017-08-30] MEDS: SENNA/DOCUSATE TABLET PO SCH (09:17)
[2017-08-30] MEDS: INSULIN GLARGINE 100 UNITS/ML, PEN SQ-INSULIN SCH ×2 (09:17→21:28)
[2017-08-30 12:28] VITALS: BP 109/72
[2017-08-30] MEDS: ENOXAPARIN 40 MG/0.4 ML SQ SCH (15:55)
[2017-08-30 20:00] VITALS: BP 129/79
[2017-08-31 03:19] VITALS: BP 121/72
[2017-08-31] MEDS: AMPICILLIN/SULBACTAM 3 GM in SODIUM CHLORIDE 0.9% 100 ML IV SCH ×3 (03:42→16:00)
[2017-08-31 06:56] VITALS: BP 104/68
[2017-08-31] MEDS: INSULIN LISPRO 100 UNITS/ML, PEN SQ-INSULIN SCH ×3 (07:00→16:00)
[2017-08-31] MEDS: CHLORHEXIDINE 15 ML BOTTLE MM SCH (08:29)
[2017-08-31] MEDS: SENNA/DOCUSATE TABLET PO SCH (08:30)
[2017-08-31] MEDS: INSULIN GLARGINE 100 UNITS/ML, PEN SQ-INSULIN SCH (08:30)
[2017-08-31] MEDS ORDERED: LIDOCAINE-MPF 1%, 2ML ONE (10:05)
[2017-08-31 14:35] VITALS: BP 112/72
[2017-08-31] MEDS: ENOXAPARIN 40 MG/0.4 ML SQ SCH (15:59)
[2017-08-31] MEDS ORDERED: ERTA1VIA IV (16:12)
== END 2017-08-31 17:59 | disposition home or self-care (01) | DRG 853 ==
LOC: ED 17:42 → EDIP 17:43 → ED 17:56 → 4NOR 22:11
PROVIDERS: ADMIT Hospitalist; ATTEND Hospitalist
PROC: 0NBT0ZZ Excision of Right Mandible, Open Approach (ICD-10-PCS; 2017-08-15)
PROC: 0CDXXZ1 Extraction of Lower Tooth, Multiple, External Approach (ICD-10-PCS; 2017-08-15)
PROC: 0W950ZZ Drainage of Lower Jaw, Open Approach (ICD-10-PCS; principal; 2017-08-15 21:00)
PROC: 02HV33Z Insertion of Infusion Device into Superior Vena Cava, Percutaneous Approach (ICD-10-PCS; 2017-08-31)
PROC: B548ZZA Ultrasonography of Superior Vena Cava, Guidance (ICD-10-PCS; 2017-08-31)
DX: A41.9 Sepsis, unspecified organism (principal); E43 Unspecified severe protein-calorie malnutrition; I76 Septic arterial embolism; J18.9 Pneumonia, unspecified organism; E87.1 Hypo-osmolality and hyponatremia; K12.2 Cellulitis and abscess of mouth; E11.65 Type 2 diabetes mellitus with hyperglycemia; E87.5 Hyperkalemia; E87.6 Hypokalemia; K02.9 Dental caries, unspecified; K04.7 Periapical abscess without sinus; M27.2 Inflammatory conditions of jaws; Z72.0 Tobacco use; Z79.2 Long term (current) use of antibiotics; Z68.26 Body mass index [BMI] 26.0-26.9, adult; Z79.4 Long term (current) use of insulin
CPT/HCPCS: 36415; 36569; 70100; 70491; 71260; 76937; 77001; 80048; 80053; 82010; 82040; 82800; 82962; 83036; 83605; 84145; 85025; 85651; 86140; 87040; 87070; 87075; 87076; 87077; 87186; 87205; 93306; 96361; 96374; J0171; J0295; J1650; J2175; J2250; J2543; J2704; J3010; J3370; J3480; J3490; Q0162; Q9967; C1751; J0330; J1815; J2270; J7030; J7050

== ENCOUNTER → 2017-09-14 | Outpatient (CLI) | payer MEDICAID, OTHER ==
[~2017-09-14] MED LIST: AMOX1TAB64 PO; CHLO473M MM; ERTA1VIA IV; INSU100I13 SQ-INSULIN; METF500T PO; OXYC5TAB3 PO; POLY17PO5 PO
== END | disposition home or self-care (01) ==
LOC: RAD 09:09
PROVIDERS: ATTEND Internal Medicine Infectious Disease
DX: R91.1 Solitary pulmonary nodule (principal); A41.9 Sepsis, unspecified organism
CPT/HCPCS: 70491; 71260